=== PATIENT | male | born 1975 | race Caucasian/White ===

== ENCOUNTER 2023-05-24 08:45 | Emergency (ER) | payer BC, SELFPAY ==
[2023-05-24] VITALS (15 sets, daily range): BP systolic 121–146; BP diastolic 77–90; PULSE 64–84; RESP 15–31; TEMP 36.3–36.7; O2SAT 93–100
--- NOTE | ~2023-05-24 | CT_ITS ---
EXAMINATION: CT abdomen pelvis w con DATE: 05/24/2023 10:44 INDICATION: Right upper quadrant abdominal pain, nausea, vomiting TECHNIQUE: Computed tomography (CT) of the abdomen and pelvis was performed with 100 CC Omnipaque 350 intravenous contrast. Automated exposure control and iterative reconstruction technique were employe d. Exam dose: 852.92 mGy-cm total exam DLP. COMPARISON: None. FINDINGS: The lung bases are clear. Normal heart size. No pericardial or pleural effusion. Small sliding hiatal hernia. Dependent mild cholelithiasis versus calcification at the posterior proximal gallbladder wall/neck. T here appears to be mild thickening of the gallbladder wall. Acute cholecystitis is suggested. Conside r abdominal ultrasound correlation. No bile duct or pancreatic duct dilatation. Occasional hepatic and multiple splenic calcified granulomas consistent with old granulomatous diseas e. No hepatic, splenic, pancreatic, and adrenal or renal space-occupying mass lesion or urinary tract ca lculus or hydroureteronephrosis is detected. There is moderate prostate enlargement and moderate diffuse thickening of the urinary bladder wall. Normal caliber of the abdominal aorta. No intraperitoneal or retroperitoneal or pelvic mass lesion or adenopathy or ascites. Normal appendix. No bowel obstruction, bowel wall thickening, pneumatosis or intraperitoneal free air . Lipoma within the left pectoralis major muscle. Bilateral L5 pars interarticularis defects and associated grade 1 anterolisthesis at L5-S1. No suspicious osteolytic or osteoblastic lesions are noted. IMPRESSION: Cholelithiasis, mild gallbladder wall thickening/edema, suggesting possible acute cholec ystitis Normal appendix Prostate enlargement Reviewed, dictated and finalized at [facility]. Reviewed, dictated and finalized at [facility]. IMPRESSION: Cholelithiasis, mild gallbladder wall thickening/edema, suggesting possible acute cholecystitis Normal appendix Prostate enlargement
--- NOTE | ~2023-05-24 | US_ITS ---
EXAMINATION: US right upper quadrant DATE: 05/24/2023 11:29 INDICATION: Acute cholecystitis. TECHNIQUE: Multiple grayscale and Doppler ultrasound images of the abdomen were obtained. COMPARISON: CT abdomen and pelvis 05/24/2023 FINDINGS: The visualized portions of the head and body of the pancreas are normal. There is diffuse h epatic steatosis. There is normal flow in main portal vein. The gallbladder is distended. Gallstones are not visualized by ultrasound, but gallstones are seen on the CT. Gallbladder wall thickening is n oted. There is no sonographic Dhillon sign. IMPRESSION: 1. Distended gallbladder with gallstones and gallbladder wall thickening, but no sonographic Dhillon s ign. These findings are suspicious for acute cholecystitis. 2. Diffuse hepatic steatosis. Reviewed, dictated and finalized at [facility]. IMPRESSION: 1. Distended gallbladder with gallstones and gallbladder wall thickening, but n o sonographic Dhillon sign. These findings are suspicious for acute cholecystiti s. 2. Diffuse hepatic steatosis.
[2023-05-24 09:09] LABS: Basophils Absolute Auto 0.1 K/mm3 (0.0-0.1); Basophils Percent Auto 0.5 % (0.2-1.2); Eosinophils Absolute Auto 0.1 K/mm3 (0-0.3); Eosinophils Percent Auto 0.9 % (0-4.4); Hematocrit 49.2 % (42.0-52.0); Hemoglobin 16.6 g/dL (14.0-18.0); Immature Granulocyte Absolute 0.07 K/mm3 (0.00-0.031); Immature Granulocyte Percent A 0.5 % (0-0.5); Lymphocytes Percent Auto 14.9 % (18.3-44.2); Mean Corpuscular HGB Conc 33.7 g/dl (32-36); Mean Corpuscular Hemoglobin 30.7 pg (26-34); Mean Corpuscular Volume 91.1 fl (80-100); Mean Platelet Volume 11.2 fl (7.4-10.4); Monocytes Absolute Auto 0.7 K/mm3 (0.1-0.6); Monocytes Percent Auto 5.2 % (2.6-8.5); Platelet Count Result 247 k/mm3 (150-375); Red Cell Distribution Width 13.1 % (11.5-14.5); White Blood Count 12.8 K/mm3 (4.5-10.0)
[2023-05-24] MEDS: HYDROmorphone HCL INJ (*CRX) 1 MG/ML SYR 0.5 MG IV PUSH (09:27)
[2023-05-24] MEDS: ONDANSETRON INJ 4 MG/2 ML VIAL IV PUSH (09:27)
[2023-05-24 10:02] LABS: Alanine Aminotransferase 43 U/L (6-50); Albumin Level 4.9 g/dL (3.5-5.1); Alkaline Phosphatase 76 U/L (38-126); Anion Gap 13 mmol/L (8-16); Aspartate Amino Transferase 38 U/L (17-59); Bilirubin,Total 0.8 mg/dL (0.2-1.3); Blood Urea Nitrogen 17 mg/dL (9-20); Calcium 9.7 mg/dL (8.4-10.2); Carbon Dioxide 24 mmol/L (22-30); Chloride 105 mmol/L (98-107); Estimated CRCL calculation 108 ml/min; Estimated Glomerular Filt Rate > 60; Glucose 140 mg/dL (65-110); Lipase 77 U/L (23-300); Potassium 4.9 mmol/L (3.4-5.0); Sodium 142 mmol/L (137-145)
--- NOTE | 2023-05-24 10:08 | ED.GENADULT ---
HPI - General Adult General Chief complaint: Abdominal Pain <NICK Jeffers Last Filed: 05/24/23 17:36> Stated complaint: ABD pain <NICK Jeffers Last Filed: 05/24/23 17:36> Time Seen by Provider: 05/24/23 08:59 <Dakota Pratt PA-C - Last Filed: 05/24/23 17:36> Source: patient <NICK Jeffers Last Filed: 05/24/23 17:36> Mode of arrival: ambulatory <NICK Jeffers Last Filed: 05/24/23 17:36> Limitations: no limitations <NICK Jeffers Last Filed: 05/24/23 17:36> History of Present Illness HPI narrative: This is a 48-year-old male who presents to the ED with chief complaint of right upper quadrant pain beginning 5 hours ago. Patient states that he also has had nausea and 5 episodes of vomiting this morning. He reports history of gallbladder attacks and was scheduled for a HIDA scan previously but never went because apparently he got better. Patient is here out of town, lives in [place]. He states he got checked into his hotel this morning and then started to have symptoms. Denies fevers, chills, diarrhea, chest pain, shortness of breath. Denies any GI bleeding symptoms. <Dakota Pratt PA-C - Last Filed: 05/24/23 17:36> Related Data Allergies/adverse reactions: Allergies Allergy/AdvReac Type Severity Reaction Status Date / Time No Known Allergies Allergy Verified 05/24/23 08:57 <Dakota Pratt PA-C - Last Filed: 05/24/23 17:36> Exam Narrative: GENERAL: Appears in pain. Tachypneic. Holding the right side. HEAD: Normocephalic, atraumatic. EYES: PERRLA and EOMI. ENT: Nares clear, no rhinorrhea or epistaxis. Mucous membranes moist. Oropharynx without tonsillar hypertrophy exudate or other lesions. NECK: Supple. No adenopathy or masses. CHEST: No respiratory distress. Clear to auscultation. No wheezes rales or rhonchi HEART: Regular rate and rhythm. No murmur heard. Normal peripheral pulses. ABDOMEN: Positive Dhillon sign with quadrant tenderness. Mild epigastric tenderness. Soft, otherwise nontender, nondistended, normal active bowel sounds. Negative peritoneal signs MSK: Normal range of motion. No edema. SKIN: Warm, dry, no rash. NEURO: Alert and oriented x3. No focal deficits. PSYCH: Normal mood and affect. <Dakota Pratt PA-C - Last Filed: 05/24/23 17:36> Course WASH BOX OPERATOR/PA Physician Supervision This visit was performed by both a physician and an APC. I performed all aspects of the MDM as documented. <Alec Bradford MD - Last Filed: 05/24/23 21:29> Vital Signs Vital signs: Vital Signs Temperature 97.4 F L 05/24/23 08:52 Pulse Rate 64 05/24/23 08:52 Respiratory Rate 26 H 05/24/23 08:52 Blood Pressure 146/90 H 05/24/23 08:52 Pulse Oximetry 100 05/24/23 08:52 Oxygen Delivery Room Air 05/24/23 08:52 Temperature 98.0 F 05/24/23 12:41 Pulse Rate 74 05/24/23 12:41 Respiratory Rate 16 05/24/23 12:41 Blood Pressure 121/77 05/24/23 12:41 Pulse Oximetry 100 05/24/23 12:41 Oxygen Delivery Room Air 05/24/23 08:52 <Dakota Pratt PA-C - Last Filed: 05/24/23 17:36> Vital Signs Temperature 97.4 F L 05/24/23 08:52 Pulse Rate 64 05/24/23 08:52 Respiratory Rate 26 H 05/24/23 08:52 Blood Pressure 146/90 H 05/24/23 08:52 Pulse Oximetry 100 05/24/23 08:52 Oxygen Delivery Room Air 05/24/23 08:52 Temperature 98.0 F 05/24/23 12:41 Pulse Rate 74 05/24/23 12:41 Respiratory Rate 16 05/24/23 12:41 Blood Pressure 121/77 05/24/23 12:41 Pulse Oximetry 100 05/24/23 12:41 Oxygen Delivery Room Air 05/24/23 08:52 <Alec Bradford MD - Last Filed: 05/24/23 21:29> Medical Decision Making MDM Narrative Medical decision making narrative: This is a 48-year-old male who presents to the ED with chief complaint of right upper quadrant pain beginning at 7 AM this morning. Associated nausea and vomiting. Vitals show initial tachypnea but no fe
[2023-05-24 10:28] LABS: Appearance Urine Clear (Clear); Bacteria Urine None Seen /hpf; Bilirubin Urine Negative (Negative); Blood Urine Negative (Negative); Color Urine Yellow (Yellow); Glucose Urine UA Negative (Negative); Ketones Urine 2+ mg/dL (Negative); Leukocyte Esterase Ur Trace LEU/UL (Negative); Nitrate Urine Negative (Negative); Non Pathogenic Casts 0-2; Protein Urine 1+ mg/dL (Negative); Squamous Epithelial Cell Urine None seen /hpf (Few); WBC Urine 0-5 /hpf; pH Urine 8.5 (5.0-9.0)
[2023-05-24 10:32] LABS: Add Urine Microscopic? YES
--- NOTE | 2023-05-24 11:35 | PC.NURSE ---
Patient report given to BOBBY Mejía. All questions answered and care of patient transferred.
== END 2023-05-24 12:40 | disposition home or self-care (01) ==
PROVIDERS: Preventive Medicine Aerospace Medicine; Emergency Provider Physician Assistant
DX: K80.00 Calculus of gallbladder with acute cholecystitis without obstruction (principal)
CPT/HCPCS: 36415; 74177; 76705; 80053; 81001; 83690; 85025; 96374; 96375; 99284; J1170; J2405; Q9967